=== PATIENT | female | born 1975 | race Caucasian/White ===

== ENCOUNTER 2017-06-17 13:26 | Emergency (ER) | payer BC ==
[2017-06-17 13:46] VITALS: BP 117/70
--- NOTE | 2017-06-17 14:39 | UC ---
Ear Complaint HPI - HPI Summary HPI Summary: 41 YEAR OLD FEMALE PRESENTS WITH BILATERAL EAR FULLNESS. - History of Current Complaint Chief Complaint: UCEar Stated Complaint: EAR PAIN Time Seen by Provider: 06/17/17 14:35 Hx Last Menstrual Period: 06/10/17 - Allergies/Home Medications Allergies/Adverse Reactions: Allergies Allergy/AdvReac Type Severity Reaction Status Date / Time Penicillins Allergy Intermediate Hives Verified 06/17/17 13:46 Home Medications: Home Medications Naproxen TAB* [Naprosyn 375 mg TAB*] 375 mg PO 06/17/17 [History] PMH/Surg Hx/FS Hx/Imm Hx Previously Healthy: Yes - Surgical History Surgical History: Yes Surgery Procedure, Year, and Place: C section 2007 - Social History Alcohol Use: Occasionally Substance Use Type: None Smoking Status (MU): Never Smoked Tobacco Review of Systems Constitutional: Negative Skin: Negative Eyes: Negative ENT: Ear Ache, Sinus Congestion Respiratory: Negative Cardiovascular: Negative Gastrointestinal: Negative Genitourinary: Negative Motor: Negative Neurovascular: Negative Musculoskeletal: Negative Neurological: Negative Psychological: Negative All Other Systems Reviewed And Are Negative: Yes Physical Exam Triage Information Reviewed: Yes Vital Signs: Initial Vital Signs Temp 37.2 C 06/17/17 13:43 Pulse 56 06/17/17 13:43 Resp 16 06/17/17 13:43 BP 117/70 06/17/17 13:43 Pulse Ox 100 06/17/17 13:43 Eye Exam: Normal ENT: Positive: Pharyngeal erythema, Nasal congestion, Nasal drainage, Other: - BILATERAL MIDDLE FLUID Dental Exam: Normal Neck exam: Normal Neck: Positive: 1 Respiratory Exam: Normal Cardiovascular Exam: Normal Abdominal Exam: Normal Musculoskeletal Exam: Normal Neurological Exam: Normal Psychological Exam: Normal Skin Exam: Normal Ear Complaint Course/Dx - Differential Dx/Diagnosis Provider Diagnoses: EAR FULLNESS. BILATERAL EAR PAIN Discharge - Discharge Plan Condition: Stable Disposition: HOME Prescriptions: Azithromyxin TALIA (NF) [Z-Talia (Zithromax) 250 mg tabs #6] 2 tab PO .TODAY, THEN 1 DAILY #6 tab Methylprednisolone [Medrol Dosepak 4 MG*] 4 mg PO .SEE TALIA INSTRUCTION #21 tab Neomyc/Polym/HC 1% OTIC SUSP* [Cortisporin Otic Susp 1%*] 4 drop BOTH EARS QID # 1 btl Pseudoephedrine HCL ER TAB* [Sudafed 12 Hour*] 120 mg PO BID #30 tab.er Patient Education Materials: Sinusitis (ED) Referrals: Willa Gordon MD [Primary Care Provider] - If Needed
== END 2017-06-17 14:52 | disposition home or self-care (01) ==
LOC: UCEAST 13:26
DX: H92.03 Otalgia, bilateral (principal); H83.8X3 Other specified diseases of inner ear, bilateral; Z88.0 Allergy status to penicillin
CPT/HCPCS: 99212; G0463

== ENCOUNTER 2019-12-29 13:28 | Emergency (ER) | payer OTHER ==
[2019-12-29 13:38] VITALS: BP 117/73
--- NOTE | 2019-12-29 13:59 | UC ---
Throat Pain/Nasal Primitivo HPI - HPI Summary HPI Summary: 44 yo female presents with flu like symptoms. She tells me that for the last 3 days she has had fever, fatigue, body aches, dry cough, and runny nose. She has been taking mucinex otc with little change. She works at [employer] and has had many sick contacts with various URIs and the flu. Denies SOB, chest pain, abdominal pain, n/v. - History of Current Complaint Chief Complaint: UCRespiratory Stated Complaint: CONGESTION Time Seen by Provider: 12/29/19 13:59 Hx Obtained From: Patient Hx Last Menstrual Period: pt does not get them Onset/Duration: Sudden Onset Pain Intensity: 0 - Allergies/Home Medications Allergies/Adverse Reactions: Allergies Allergy/AdvReac Type Severity Reaction Status Date / Time Penicillins Allergy Intermediate Hives Verified 12/29/19 13:38 Home Medications: Home Medications Ethynodiol D-Ethinyl Estradiol [Kelnor 1-35 28 Tablet] 1 tab PO DAILY 12/29/19 [ History Confirmed 12/29/19] Oseltamivir CAP* [Tamiflu CAP*] 75 mg PO BID #10 cap 12/29/19 [Rx] guaiFENesin [Mucinex] 1 tab PO ONCE PRN 12/29/19 [History Confirmed 12/29/19] PMH/Surg Hx/FS Hx/Imm Hx - Additional Past Medical History Additional PMH: None - Surgical History Surgical History: Yes Surgery Procedure, Year, and Place: C section 2007 - Family History Known Family History: Positive: None - Social History Occupation: Employed Full-time Lives: With Family Alcohol Use: Occasionally Substance Use Type: None Smoking Status (MU): Never Smoked Tobacco Review of Systems All Other Systems Reviewed And Are Negative: No Constitutional: Positive: Fever, Fatigue, Other - Body aches Skin: Positive: Negative Eyes: Positive: Negative ENT: Positive: Nasal Discharge Respiratory: Positive: Cough Cardiovascular: Positive: Negative Gastrointestinal: Positive: Negative Neurological/Mental Status: Positive: Negative Psychological: Positive: Negative Physical Exam - Summary Physical Exam Summary: GENERAL: NAD. WDWN. No pain distress. SKIN: No rashes, sores, lesions, or open wounds. HEENT: Head: AT/NC Eyes: EOM intact. Conjunctiva clear without inflammation or discharge. Ears: Hearing grossly normal. TMs intact, no bulging, erythema, or edema. Nose: Nasal mucosa pink and moist. NTTP maxillary and frontal sinus. Throat: Posterior oropharynx without exudates, erythema, or tonsillar enlargement. Uvula midline. NECK: Supple. Nontender. No lymphadenopathy. CHEST: CTAB. No r/r/w. No accessory muscle use. Breathing comfortably and in no distress. CV: RRR. Pulses intact. Cap refill <2seconds NEURO: Alert. PSYCH: Age appropriate behavior. Triage Information Reviewed: Yes Vital Signs: Initial Vital Signs Temp 98.4 F 12/29/19 13:34 Pulse 73 12/29/19 13:34 Resp 18 12/29/19 13:34 BP 117/73 12/29/19 13:34 Pulse Ox 100 12/29/19 13:34 Laboratory Tests 12/29/19 14:39 Influenza B (Rapid) Positive H Vital Signs Reviewed: Yes Diagnostics - Radiology CXR Radiology Interpretation Completed By: Radiologist Summary of Radiographic Findings: IMPRESSION: 1. NO EVIDENCE FOR ACUTE FINDING. 2. FINDINGS CONSISTENT WITH OLD GRANULOMATOUS DISEASE. Throat Pain/Nasal Course/Dx - Course Course Of Treatment: POC flu positive. CXR as above. Discussed findings of CXR with pt and she states no known hx of granulomatosis disease. -- Recommended f/u with PCP in 2-4 weeks for further eval of this. - Differential Dx/Diagnosis Provider Diagnosis: Influenza Discharge ED - Sign-Out/Discharge Documenting (check all that apply): Patient Departure All imaging exams completed and their final reports reviewed: Yes - Discharge Plan Condition: Stable Disposition: HOME Prescriptions: Oseltamivir CAP* [Tamiflu CAP*] 75 mg PO BID #10 cap Patient Education Materials: Influenza (ED), Pulmonary Nodules (ED) Referrals: Willa Gordon MD [Primary Care Provider] - 2 Weeks Additional Instructions: FLU TEST POSITIVE. YOUR CHEST X-RAY TODAY SHOWED A CALCIFIED NODULE IN YOUR LUNG THAT COULD BE CONSISTENT WITH AN OLD GRANULOMATOUS DISEASE (AUTOIMMUNE DISEASE). --- Given that you have never had a diagnoses of this or any prior issues, I recommend that you follow up with your primary doctor within 2-4 weeks for further evaluation of this and likely repeat testing. Most people with the flu recover within one to two weeks without treatment. However, serious complications of the flu can occur. Go to the ER immediately if you: -- You feel short of breath or have trouble breathing -- You have pain or pressure in your chest or stomach -- You have signs of being dehydrated, such as dizziness when standing or not passing urine -- You feel confused -- You cannot stop vomiting or you cannot drink enough fluids There are several groups of people who are at increased risk for flu complications. These include women, young children (<5 years of age and especially <2 years of age), people older than 65 years of age, and people with certain diseases such as chronic lung disease (such as asthma), heart disease, diabetes, immunosuppressing conditions (such as HIV infection or transplantation), and some other diseases. Treat symptoms Treating the symptoms of influenza can help you to feel better but will not make the flu go away faster. -- Rest until the flu is fully resolved, especially if the illness has been severe. -- Fluids Drink enough fluids so that you do not become dehydrated. One way to flaking roll operator if you are drinking enough is to look at the color of your urine. Normally, urine should be light yellow to nearly colorless. If you are drinking enough, you should pass urine every three to five hours. -- Acetaminophen (sample brand name: Tylenol) can relieve fever, headache, and muscle aches. Aspirin and medicines that include aspirin (eg, bismuth subsalicylate [sample brand name: Pepto-Bismol]) are not recommended for children under 18 because aspirin can lead to a serious disease called Brianne syndrome. -- Cough medicines are not usually helpful; cough usually resolves without treatment. We do not recommend cough or cold medicine for children under age 6 years. Antiviral treatment Antiviral medicines can be used to treat or prevent influenza. When used as a treatment, the medicine does not eliminate flu symptoms, although it can reduce the severity and duration of symptoms by about one day. Not every person with influenza needs an antiviral medicine, but some people do; the decision is based upon several factors. If you are severely ill and/or have risk factors for developing complications of influenza, you will need an antiviral agent. People who are only mildly ill and have no risk factors for complications usually do not need to be treated with antiviral medication. - Billing Disposition and Condition Condition: STABLE Disposition: Home - Attestation Statements Provider Attestation: I was available for consult. This patient was seen by the JOSE ALFREDO. The patient was not presented to, seen by, or examined by me. -Adan
[2019-12-29 14:42] LABS: Influenza B Molecular POSITIVE (Negative)
== END 2019-12-29 15:05 | disposition home or self-care (01) ==
LOC: UCEAST 13:28
DX: J11.1 Influenza due to unidentified influenza virus with other respiratory manifestations (principal); Z88.0 Allergy status to penicillin
CPT/HCPCS: 71046; 99212; G0463